=== PATIENT | male | born 1980 | race Caucasian/White ===

== ENCOUNTER 2021-11-16 20:02 | Emergency (ER) | payer OTHER ==
[~2021-11-16] VITALS: Ht 182.9 cm; Wt 119.1 kg
[2021-11-16] MEDS ORDERED: NORCO 325 MG-51 TA1 PO (22:57)
[2021-11-16 23:05] VITALS: BP 146/93
[2021-11-18] MEDS ORDERED: KETOROLAC10 MG PO (11:41)
== END 2021-11-16 23:05 | disposition home or self-care (01) ==
LOC: ED 20:02
DX: M10.9 Gout, unspecified (principal); Z28.310 Unvaccinated for COVID-19
CPT/HCPCS: J1885